=== PATIENT | female | born 1970 | race Caucasian/White ===

== ENCOUNTER 2017-05-26 15:30 | Emergency (ER) | payer OTHER ==
[2017-05-26 15:49] VITALS: BP 106/67; PULSE 55; TEMP 98.2; BMI 25.0
--- NOTE | 2017-05-26 16:26 | PDOC ---
History of Present Illness <Matt Rizvi - Last Filed: 05/26/17 16:25> - History of Present Illness Initial Comments: 05/26/17 17:06 Patient is a 46 F, with no significant PMHx, who presents with sore throat for 3 days. Patient states that her child tested positive for strep. She has no other complaints at this time. <Mandie Suárez - Last Filed: 05/26/17 17:13> - General Chief Complaint: Sore Throat Stated Complaint: SORE THROAT Time Seen by Provider: 05/26/17 15:36 Past History - Past Medical History COPD: No Other medical history: DENIES - Suicide/Smoking/Psychosocial Hx Smoking History: Never smoked Have you smoked in the past 12 months: No Information on smoking cessation initiated: No Hx Alcohol Use: No Drug/Substance Use Hx: No Substance Use Type: None <Matt Rizvi - Last Filed: 05/26/17 16:25> <Mandie Suárez - Last Filed: 05/26/17 17:13> - Past Medical History Allergies/Adverse Reactions: Allergies Allergy/AdvReac Type Severity Reaction Status Date / Time No Known Allergies Allergy Verified 05/26/17 15:31 Home Medications: Ambulatory Orders NK [No Known Home Medication] 05/26/17 Review of Systems - Review of Systems Comments:: 05/26/17 17:06 CONSTITUTIONAL: Absent: fever, no chills, no fatigue EYES: Absent: visual changes ENT: present: sore throat Absent: ear pain CARDIOVASCULAR: Absent: chest pain, no palpitations RESPIRATORY: Absent: cough, no SOB GI: Absent: abdominal pain, no nausea, no vomiting, no constipation, no diarrhea GENITOURINARY: Absent: dysuria, no frequency, no hematuria MUSCULOSKELETAL: Absent: back pain, no arthralgia, no myalgia SKIN: Absent: rash <Mandie Suárez - Last Filed: 05/26/17 17:13> *Physical Exam - Vital Signs Last Vital Signs Temp Pulse Resp BP Pulse Ox 98.2 F 55 L 20 106/67 99 05/26/17 15:30 05/26/17 15:30 05/26/17 15:30 05/26/17 15:30 05/26/17 15:30 <Matt Rizvi - Last Filed: 05/26/17 16:25> - Vital Signs Last Vital Signs Temp Pulse Resp BP Pulse Ox 98.2 F 55 L 20 106/67 99 05/26/17 15:30 05/26/17 15:30 05/26/17 15:30 05/26/17 15:30 05/26/17 15:30 - Physical Exam Comments: 05/26/17 17:07 GENERAL: Well-appearing, well-nourished. No apparent distress. HEENT: Normocephalic, atraumatic. PERRL, EOM intact. Mild erythema to pharynx. Uvula midline. CARDIOVASCULAR: Normal S1, S2. Regular rate and rhythm. PULMONARY: Clear to auscultation bilaterally. ABDOMEN: Soft, non-distended, non-tender. EXTREMITIES: Normal ROM in all four extremities. No gross deformities. SKIN: Warm, dry. No rash NEUROLOGICAL: No focal neurological deficits. <Mandie Suárez - Last Filed: 05/26/17 17:13> ED Treatment Course - ADDITIONAL ORDERS Additional order review: 05/26/17 16:14 Group A Strep Rapid Antigen - Final Throat NEGATIVE FOR THE ANTIGEN OF BETA HEMOLYTIC STREP GROUP A <Mandie Suárez - Last Filed: 05/26/17 17:13> *DC/Admit/Observation/Transfer <Matt Rizvi - Last Filed: 05/26/17 16:25> - Discharge Dispostion Admit: No - Attestations Scribe Attestion: 05/26/17 17:13 Documentation prepared by Mandie Suárez, acting as medical staff physician for Matt Rizvi MD. <Mandie Suárez - Last Filed: 05/26/17 17:13> Diagnosis at time of Disposition: Pharyngitis - Discharge Dispostion Disposition: HOME Condition at time of disposition: Good - Patient Instructions Printed Discharge Instructions: DI for Viral Pharyngitis Additional Instructions: Please follow up with your PCP in the next several days. Please return if you have any new, worsening, or concerning symptoms.
== END 2017-05-26 17:19 | disposition home or self-care (01) ==
LOC: FER 15:30
DX: J02.9 Acute pharyngitis, unspecified (principal)
CPT/HCPCS: 87070; 87430; 99281-25

== ENCOUNTER 2022-05-12 07:09 | Day surgery (SDC) | payer BC, OTHER ==
[2022-05-07 15:09] VITALS: BMI 26.4
[2022-05-12 11:04] VITALS: RESP 16; TEMP 97.8
[2022-05-12 11:16] VITALS: BP 105/67; PULSE 58
== END 2022-05-12 11:29 | disposition home or self-care (01) ==
LOC: FASU-ENDO 07:09
PROVIDERS: ATTEND Internal Medicine Gastroenterology
PROC: 0DJD8ZZ Inspection of Lower Intestinal Tract, Via Natural or Artificial Opening Endoscopic (ICD-10-PCS; principal; 2022-05-12 10:36)
DX: Z12.11 Encounter for screening for malignant neoplasm of colon (principal)